=== PATIENT | female | born 1960 | race Caucasian/White ===

== ENCOUNTER 2020-03-16 06:50 | Observation (INO) ==
[2020-03-16] MEDS ORDERED: Aspirin 81 MG TAB.CHEW PO ONE (07:13)
[2020-03-16 07:30] LABS: INR 0.9; Prothrombin Time 10.3 Seconds (9.4-12.1)
[2020-03-16] MEDS ORDERED: Nitroglycerin 0.4 MG TAB.SUBL SL STA (07:31)
[2020-03-16 07:33] LABS: Activated Partial Thrombo Time 32.4 Seconds (26.0-36.0)
[2020-03-16 07:39] LABS: Alanine Aminotransferase 18 Units/L (7-52); Albumin 4.3 g/dL (3.5-5.7); Albumin/Globulin Ratio 1.4 (1.1-2.2); Alkaline Phosphatase 96 Units/L (34-104); Aspartate Amino Transferase 17 Units/L (13-39); BUN/Creatinine Ratio 18 (6-26); Bilirubin,Direct 0.1 mg/dL (0.0-0.2); Bilirubin,Indirect 0.3 mg/dL (0.0-1.0); Bilirubin,Total 0.4 mg/dL (0.3-1.0); Blood Urea Nitrogen 14 mg/dL (6-20); Calcium 9.6 mg/dL (8.6-10.3); Carbon Dioxide 29 mEq/L (23-29); Chloride 103 mEq/L (98-107); Globulin 3.1 g/dL (2.4-3.5); Glucose 119 mg/dL (70-105); Osmolality,Calculated 284 (280-300); Potassium 4.5 mEq/L (3.5-5.1); Sodium 136 mEq/L (136-145); Total Protein 7.4 g/dL (6.4-8.9); Troponin I < 0.03 ng/mL (< 0.04); eGFR For African Americans > 60 (> 60); eGFR For Non-African Americans > 60 (> 60)
[2020-03-16 07:41] LABS: Lipase 16 Units/L (11-82)
[2020-03-16 07:51] LABS: Basophils # 0.1 K/mcL (0.0-0.2); Basophils % 0.7 %; Eosinophils # 0.2 K/mcL (0.0-0.6); Eosinophils % 3.2 %; Hematocrit 42.6 % (35.3-44.9); Hemoglobin 14.2 g/dL (11.5-15.4); Immature Granulocytes % 0.3 % (0-4); Lymphocytes # 1.7 K/mcL (0.6-4.6); Lymphocytes % 23.2 %; Mean Corpuscular HGB Conc 33.3 g/dL (31.6-35.5); Mean Corpuscular Hemoglobin 31.2 pg (28.0-33.3); Mean Corpuscular Volume 93.6 fL (83.0-100.0); Mean Platelet Volume 10.9 fL (9.4-12.4); Monocytes # 0.5 K/mcL (0.0-1.3); Monocytes % 6.8 %; Neutrophils # 4.8 K/mcL (1.6-8.9); Platelet Count 273 K/mcL (140-400); Red Blood Count 4.55 M/mcL (3.82-4.97); Red Cell Distribution Width 14.6 % (11.5-14.5); Segmented Neutrophils % 65.8 %; White Blood Count 7.3 K/mcL (4.3-11.1)
[2020-03-16] MEDS ORDERED: Naloxone 0.4 MG/ML INJ IVP PRN (08:16)
[2020-03-16] MEDS ORDERED: Ondansetron 4 MG/2 ML VIAL IVP PRN (08:16)
[2020-03-16] MEDS ORDERED: GI Cocktail 40 ML EACH PO ONE (08:17)
[2020-03-16] MEDS ORDERED: Ondansetron 4 MG/2 ML VIAL IVP ONE (08:17)
[2020-03-16 08:30] LABS: Bilirubin,Urine Negative (Negative); Blood,Urine Negative (Negative); Clarity,Urine Clear (Clear); Color,Urine Yellow (Yellow); Glucose,Urine (UA) Normal (Normal); Ketones,Urine Negative (Negative); Leukocyte Esterase,Urine Negative (Negative); Nitrite,Urine Negative (Negative); PH,Urine 6.5 pH Units (5.0-8.0); Protein,Urine Trace mg/dL (Neg-Trace); Specific Gravity,Urine 1.024 (1.010-1.025); Urobilinogen,Urine Normal (Normal)
[2020-03-16] MEDS ORDERED: Nitroglycerin 0.4 MG TAB.SUBL SL PRN (09:14)
[2020-03-16] MEDS: Acetaminophen 325 MG TABLET PO PRN (11:24)
[2020-03-16] MEDS: Nicotine 21 MG PATCH.TD24 TD SCH (11:24)
[2020-03-16] MEDS: *HR* Heparin 5,000 UNIT/ML VIAL SQ SCH ×2 (14:41→21:18)
[2020-03-16] MEDS: lamoTRIgine 100 MG TABLET PO SCH (19:40)
[2020-03-16] MEDS: GI Cocktail 40 ML EACH PO SCH (19:41)
[2020-03-16] MEDS ORDERED: polyethylene glycoL 3350 17 GM POWD.PACK PO PRN (19:50)
[2020-03-16] MEDS: Budesonide/Formoterol 160/4.5 1 PUFF INH IH SCH (20:21)
[2020-03-17] MEDS: Acetaminophen 325 MG TABLET PO PRN ×2 (02:02→09:46)
[2020-03-17] MEDS: *HR* Heparin 5,000 UNIT/ML VIAL SQ SCH ×2 (05:05→12:48)
[2020-03-17] MEDS ORDERED: Regadenoson 0.4 MG/5 ML SYRINGE IVP ONE (06:09)
[2020-03-17 07:24] LABS: Eosinophils # 0.1 K/mcL (0.0-0.6); Hematocrit 43.7 % (35.3-44.9); Hemoglobin 14.2 g/dL (11.5-15.4); Mean Corpuscular HGB Conc 32.5 g/dL (31.6-35.5); Mean Corpuscular Hemoglobin 30.6 pg (28.0-33.3); Mean Corpuscular Volume 94.2 fL (83.0-100.0); Mean Platelet Volume 10.4 fL (9.4-12.4); Platelet Count 243 K/mcL (140-400); Red Blood Count 4.64 M/mcL (3.82-4.97); Red Cell Distribution Width 14.6 % (11.5-14.5); White Blood Count 5.2 K/mcL (4.3-11.1)
[2020-03-17 07:43] LABS: BUN/Creatinine Ratio 17 (6-26); Blood Urea Nitrogen 13 mg/dL (6-20); Calcium 9.2 mg/dL (8.6-10.3); Carbon Dioxide 30 mEq/L (23-29); Chloride 104 mEq/L (98-107); Glucose 113 mg/dL (70-105); Osmolality,Calculated 289 (280-300); Potassium 4.5 mEq/L (3.5-5.1); Sodium 139 mEq/L (136-145); eGFR For African Americans > 60 (> 60); eGFR For Non-African Americans > 60 (> 60)
[2020-03-17 08:11] LABS: Lymphocytes # 1.6 K/mcL (0.6-4.6); Monocytes # 0.2 K/mcL (0.0-1.3); Neutrophils # 3.3 K/mcL (1.6-8.9)
[2020-03-17 08:12] LABS: Platelet Estimate Normal (Normal)
[2020-03-17 08:13] LABS: Reactive Lymphocytes Present (Not Present)
[2020-03-17] MEDS ORDERED: Famotidine 20 MG TABLET PO SCH (09:00)
[2020-03-17] MEDS ORDERED: Spironolactone 25 MG TABLET PO SCH (09:00)
[2020-03-17] MEDS ORDERED: Aspirin 81 MG TAB.CHEW PO SCH (09:00)
[2020-03-17] MEDS ORDERED: amLODIPine 5 MG TABLET PO SCH (09:00)
[2020-03-17] MEDS ORDERED: FLUoxetine 20 MG CAPSULE PO SCH (09:00)
[2020-03-17] MEDS: lamoTRIgine 100 MG TABLET PO SCH (09:46)
[2020-03-17] MEDS: Nicotine 21 MG PATCH.TD24 TD SCH (09:50)
[2020-03-17] MEDS ORDERED: Tiotropium 18 MCG inhalation IH SCH (10:00)
[2020-03-17] MEDS: Budesonide/Formoterol 160/4.5 1 PUFF INH IH SCH (10:22)
[2020-03-17] MEDS: GI Cocktail 40 ML EACH PO SCH (11:04)
[2020-03-17 15:25] LABS: Chol/HDL Ratio 3.5 (0-4.9)
[2020-03-17 15:33] VITALS: BP 123/72
[2020-03-17 16:50] LABS: Estimated Average Glucose 120 mg/dl
== END 2020-03-17 17:57 | disposition home or self-care (01) ==
LOC: 3BNU 06:50 → EMEROOARM 06:50 → 3BNU 09:40
PROVIDERS: ADMIT Family Medicine; ATTEND Family Medicine

== ENCOUNTER 2020-08-20 08:42 | Observation (INO) ==
[2020-08-20] MEDS ORDERED: CeFAZolin Syr 2,000MG/20 ML 2,000 MG/20 ML SYRINGE IVPB ONE (09:19)
[2020-08-20] MEDS ORDERED: Ringers Solution, Lactated 1,000 ML IVC SCH (09:30)
[2020-08-20] MEDS ORDERED: Ondansetron 4 MG/2 ML VIAL IVP PRN ×2 (09:33→19:17)
[2020-08-20] MEDS ORDERED: *HR* HYDROmorphone PF 0.5 MG/0.5 ML SYRINGE IVP PRN (09:33)
[2020-08-20] MEDS ORDERED: *HR* OxyCODONE Immed Rel 5 MG TABLET PO PRN (09:33)
[2020-08-20] MEDS ORDERED: Acetaminophen IV 1,000 MG/100 ML INFUS..BTL IVPB ONE (09:34)
[2020-08-20] MEDS ORDERED: Lidocaine -MPF 2% 2 ML VIAL ONE (10:17)
[2020-08-20] MEDS ORDERED: Dexamethasone 4 MG/ML VIAL ONE (10:17)
[2020-08-20] MEDS ORDERED: *HR* Succinylcholine 200 MG/10 ML VIAL IVP ONE (10:17)
[2020-08-20] MEDS ORDERED: Ondansetron 4 MG/2 ML VIAL ONE (10:17)
[2020-08-20] MEDS ORDERED: *HR* Rocuronium Bromide 50 MG/5 ML VIAL ONE ×3 (10:17→12:49)
[2020-08-20] MEDS ORDERED: *HR* Propofol 200 MG/20 ML VIAL IVP ONE (10:19)
[2020-08-20] MEDS ORDERED: *HR* FentaNYL (PF) 100 MCG/2 ML VIAL ONE (10:19)
[2020-08-20] MEDS ORDERED: *HR* HYDROMORPHONE 2 MG/ML VIAL ONE (12:06)
[2020-08-20] MEDS ORDERED: Ketorolac 30 MG/ML VIAL ONE (12:41)
[2020-08-20] MEDS ORDERED: *HR* OxyCODONE/APAP 5/325 TABLET PO PRN (15:26)
[2020-08-20] MEDS ORDERED: Albuterol 2.5 MG/3 ML NEBULIZER IH ONE ×2 (15:36→19:54)
[2020-08-20] MEDS ORDERED: 0.9 % Sodium Chloride 1,000 ML IV SCH (19:17)
[2020-08-20 22:41] VITALS: BP 127/73
== END 2020-08-21 00:25 | disposition left against medical advice (07) ==
LOC: 3ANU 08:42 → SAMDAY 08:42 → 3ANU 16:23
PROVIDERS: ADMIT Surgery; ATTEND Surgery